=== PATIENT | male | born 1955 | race Asian ===

== ENCOUNTER 2017-03-01 06:16 | Day surgery (SDC) | payer OTHER ==
[~2017-03-01] VITALS: Ht 160 cm; Wt 58.1 kg
[2017-03-01] MEDS ORDERED: ASPIRIN (07:41)
[2017-03-01] MEDS ORDERED: BISOPROLOL (07:41)
[2017-03-01] MEDS ORDERED: ATORVASTATIN (07:41)
[2017-03-01] MEDS ORDERED: LEVOTHYROXINE (07:41)
[2017-03-01] MEDS ORDERED: FERROUS SULFATE (07:41)
[2017-03-01] MEDS ORDERED: METFORMIN (07:41)
[2017-03-01] MEDS ORDERED: PROPOFOL 40 ML ONE (08:01)
[2017-03-01] MEDS ORDERED: PHENYLephrine (100 MCG/ML) 5ML SYG ONE (08:09)
--- NOTE | 2017-03-01 08:21 | OPPN ---
Date/Time of Note Date/Time of Note DATE: 03/01/17 TIME: 08:20 Proc Note GI Procedure Date 03/01/17 Indication: screening/surveillance Pre-procedure Diagnosis Screening colonoscopy Post-procedure Diagnosis Normal colonoscopy: All the way to cecum Normal terminal ileum Procedure Performed: Colonoscopy Surgeon see signature line Surgical Consultant none Anesthesia Type: MAC Tourniquet Time none EBL none Transfusion required none Biopsy 1: None Grafts/Implants none Tubes/Drains none Complication(s) none Disposition: PACU Procedure Description Report dictated ED MOLINA MD Mar 01, 2017 08:21
--- NOTE | 2017-03-01 08:54 | GILP ---
DATE OF PROCEDURE: PROCEDURE: Colonoscopy. INDICATION: A 62-year-old male undergoing this procedure for colon cancer screening. The risks of the procedure, related and unrelated complications, anesthetic risks, alternatives were thoroughly d iscussed with the patient, which patient understood, agreed, consented for it. DESCRIPTION OF PROCEDURE: The patient was brought to the GI lab, sedated by Dr. Carter, anesthesiolog ist. After optimal sedation, digital examination done. Sphincter tone was normal. No mass was fel t. Scope was passed with much ease into rectum, advanced through sigmoid, descending, transverse co rickey all the way into cecum. Appendiceal orifice identified. IC valve identified. Rest of the colo n was normal. While coming out, mucosa thoroughly inspected. No gross lesion was identified. Scope was entered i nto terminal ileum, which was normal. Retroflexion done, no internal hemorrhoids identified. No po lyps seen. Scope was straightened out and removed with good patient tolerance. IMPRESSION: 1. Small external hemorrhoid. 2. Negative all the way into the cecum. 3. Negative terminal ileum. 4. Digital examination was normal. 5. Retroversion in the rectum was normal. 6. Clarity and cleanliness was good. PLAN: Stay on high-fiber diet. Next colonoscopy after 10 years. Dictated By: ED BEACH/ELIZABETH Conf#: [id number] DID#: [id number]
[2017-03-01 08:59] VITALS: BP 136/77; PULSE 64; RESP 19
== END 2017-03-01 15:45 | disposition home or self-care (01) ==
LOC: GIL 06:16
PROVIDERS: ATTEND Internal Medicine Gastroenterology
DX: Z12.11 Encounter for screening for malignant neoplasm of colon (principal); K64.4 Residual hemorrhoidal skin tags; E11.9 Type 2 diabetes mellitus without complications; I10 Essential (primary) hypertension; I25.10 Atherosclerotic heart disease of native coronary artery without angina pectoris; E78.5 Hyperlipidemia, unspecified; E03.9 Hypothyroidism, unspecified
CPT/HCPCS: 45378; 82962; J2370; Z7610